=== PATIENT | female | born 1950 | race Caucasian/White ===

== ENCOUNTER 2017-11-21 06:48 | Emergency (ER) | payer SELFPAY ==
[2017-11-21 07:40] LABS: Urine Appearance Clear; Urine Blood Negative (Negative); Urine Color Straw; Urine Ketones Negative (Negative); Urine Protein Negative (Negative); Urine Specific Gravity 1.012 (1.010-1.030); Urine Urobilinogen Negative (Negative)
[2017-11-21] MEDS ORDERED: NS 0.9% 1000 ML* 1,000 ML IV ONE (07:41)
[2017-11-21 07:47] LABS: ABS Basophils 0 10^3/ul (0-0.2); ABS Eosinophils 0.2 10^3/ul (0-0.6); ABS Lymphocytes 1.5 10^3/ul (1.0-4.8); ABS Monocytes 0.5 10^3/ul (0-0.8); ABS Neutrophils 2.8 10^3/ul (1.5-7.7); ABS Nucleated RBC 0 10^3/ul; Eosinophil % 4.3 % (0-6); Hematocrit 38 % (35-47); Hemoglobin 13.1 g/dl (12.0-16.0); Lymphocyte % 29.7 % (25-47); Mean Corpuscular HGB Conc 35 g/dl (31-36); Mean Corpuscular Hemoglobin 30 pg (27-31); Mean Corpuscular Volume 88 fL (80-97); Mean Platelet Volume 8 um3 (7.4-10.4); Nucleated Red Blood Cells % 0; Platelet Count 165 10^3/ul (150-450); Red Blood Count 4.33 10^6/ul (4.0-5.4); Red Cell Distribution Width 13 % (10.5-15); White Blood Count 5.1 10^3/ul (3.5-10.8)
[2017-11-21 07:57] LABS: EGFR Non-African American 34.9 (>60)
--- NOTE | 2017-11-21 08:24 | RAD ---
INDICATION: LEFT flank pain. Recurrent urinary tract infections. Nausea and vomiting. COMPARISON: July 21, [address] TECHNIQUE: Multidetector CT images were obtained from the lung bases to the ischial tuberosities. Evaluation of the viscera is limited without IV contrast. Multiplanar reformation. REPORT: Focal bronchiectasis at the extreme caudal aspect of the lingula is chronic without concern. Negative for CT abnormality of the liver, partially distended gallbladder, pancreas, spleen. Negative for CT abnormality of the upper GI or small bowel. Post appendectomy. No CT abnormality of the colon. Negative for ascites, free air, hernias. Normal adrenal glands. Negative for urolithiasis or hydronephrosis. 1.2 x 2.4 cm sharply circumscribed uniform fat density lesion at the inferior pole of the LEFT kidney is consistent with a benign angiomyolipoma. No abnormality along the course of the nondilated ureters or at the urinary bladder. Post hysterectomy. Unremarkable adnexal regions. Negative for lymphadenopathy. Normal diameter abdominal aorta and iliac arteries. Largely decompressed inferior vena cava indicating lower volume state. Negative for suspicious osseous lesions. IMPRESSION: 1. Post appendectomy and hysterectomy. 2. Negative for urolithiasis or hydronephrosis. 3. 1.2 x 2.4 cm fat density lesion at the lower pole of the LEFT kidney consistent with a benign angiomyolipoma. 4. No acute abdominal pelvic pathologic process evident.
[2017-11-21 09:40] VITALS: BP 109/72
--- NOTE | 2017-11-22 16:10 | ED ---
Jeff Jones Angela, scribed for Johnny Scruggs MD on 11/21/17 at 0738 . GI/ HPI - HPI Summary HPI Summary: This pt is a 67 y/o female presenting to [facility] c/o abd pain radiating to left flank for the past couple of days. Pt notes she additionally has UTI symptoms. She states she has a hx of UTIs for approximately 2 years now. Pt states that on 11/02 she went to [facility] and was diagnosed with a UTI for which she was given antibiotics. She was also given a referral for Dr. Castro. Pt notes she finished her medications but a couple of days ago she began to feel recurrent UTI symptoms. She states this episode is different as she also has nausea, low back pain, abd pain and distension. Denies hx of kidney stones. PSHx: appendectomy. Pt reports taking Ciprofloxacin (from 2 years ago) yesterday and this morning. - History of Current Complaint Chief Complaint: EDUrogenitalProblems Time Seen by Provider: 11/21/17 07:26 Stated Complaint: POSSIBLE UTI/ITCH Hx Obtained From: Patient Onset/Duration: Started Days Ago, Still Present Timing: Lasting Days Current Severity: Moderate Pain Intensity: 7 Location of Pain: Diffuse Pain Radiates to: Flank - left Associated Signs and Symptoms: Positive: Back Pain - low, Nausea, UTI Symptoms. Negative: Vomiting - Allergy/Home Medications Allergies/Adverse Reactions: Allergies Allergy/AdvReac Type Severity Reaction Status Date / Time No Known Allergies Allergy Verified 11/21/17 07:40 PMH/Surg Hx/FS Hx/Imm Hx Endocrine/Hematology History: Denies: Hx Diabetes Cardiovascular History: Denies: Hx Hypertension History: Reports: Other Problems/Disorders - UTIs Denies: Hx Kidney Stones - Surgical History Surgery Procedure, Year, and Place: knee surgeries Infectious Disease History: No Infectious Disease History: Denies: Traveled Outside the [place] in Last 30 Days - Family History Known Family History: Positive: Respiratory Disease - Lung disease in grandmothers Negative: Diabetes Family History: Negative for CA. - Social History Alcohol Use: None Substance Use Type: Reports: None Smoking Status (MU): Unknown if Ever Smoked Review of Systems Negative: Fever, Chills Positive: Abdominal Pain, Nausea Genitourinary: Other - UTI symptoms Musculoskeletal: Other - low back pain All Other Systems Reviewed And Are Negative: Yes Physical Exam - Summary Physical Exam Summary: VITAL SIGNS: Reviewed. GENERAL: Patient is a well-developed and nourished female who is lying comfortable in the stretcher. Patient is not in any acute respiratory distress. HEAD AND FACE: Normocephalic and atraumatic. EYES: PERRLA, EOMI x 2, No injected conjunctiva. EARS: Hearing grossly intact. Ear canals and tympanic membranes are WNL. MOUTH: Oropharynx within normal limits. NECK: Supple, trachea is midline, no adenopathy, no JVD. CHEST: Symmetric, no tenderness at palpation LUNGS: Clear to auscultation bilaterally. No wheezing or crackles. CVS: RRR, S1 and S2 present, no murmurs or gallops appreciated. ABDOMEN: Soft. No signs of distention. Positive bowel sounds. No rebound no guarding, and no masses palpated. No abdominal bruit or pulsations. Left costovertebral angle tenderness. EXTREMITIES: FROM in all major joints, no edema, no cyanosis or clubbing. NEURO: Alert and oriented x 3. No acute neurological deficits. Speech is normal. SKIN: Dry and warm Triage Information Reviewed: Yes Vital Signs On Initial Exam: Initial Vitals Temp Pulse Resp BP Pulse Ox 97.0 F 72 16 118/79 99 11/21/17 06:58 11/21/17 06:58 11/21/17 06:58 11/21/17 06:58 11/21/17 06:58 Vital Signs Reviewed: Yes Diagnostics - Vital Signs Vital Signs Temp Pulse Resp BP Pulse Ox 11/21/17 07:28 71 95 11/21/17 07:26 131/77 11/21/17 06:58 97.0 F 72 16 118/79 99 - Laboratory Result Diagrams: 11/21/17 07:36 11/21/17 07:36 Lab Statement: Any lab studies that have been ordered have been reviewed, and results considered in the medical decision making process. - CT Abdomen/Pelvis CT CT Interpretation: Positive (See Comments) - IMPRESSION: 1. Post appendectomy and hysterectomy. 2. Negative for urolithiasis or hydronephrosis. 3. 1.2 x 2.4 cm fat density lesion at the lower pole of the LEFT kidney consistent with a benign angiomyolipoma. 4. No acute abdominal pelvic pathologic process evident. Dr. Scruggs has reviewed this radiology report. CT Interpretation Completed By: Radiologist ANNIE Course/Dx - Course Assessment/Plan: This pt is a 67 y/o female presenting to [facility] c/o abd pain radiating to left flank for the past couple of days. Pt notes she additionally has UTI symptoms. She states she has a hx of UTIs for approximately 2 years now. Pt states a few weeks ago pt was diagnosed with UTI and was given medications. She was also given a referral for Dr. Castro. Pt notes she finished her medications but a couple of days ago she felt UTI symptoms. She states this episode is different as she also has nausea, low back pain, abd pain and distension. Denies hx of kidney stones. Test result without any significant abnormalities except for creatinine of 1.5. Urinalysis is negative for UTI. Abdomen/Pelvis CT shows 1. Post appendectomy and hysterectomy. 2. Negative for urolithiasis or hydronephrosis. 3. 1.2 x 2.4 cm fat density lesion at the lower pole of the LEFT kidney consistent with a benign angiomyolipoma. 4. No acute abdominal pelvic pathologic process evident. The abdomen/pelvis CT was done to rule out kidney stone. Pt reported she took Ciprofloxacin and has taken 2-3 pills but continues to have the same symptoms. She also states the Ciprofloxacin was from 2 years ago so it mustve been . The pt complains of pelvic itching and I offered a pelvic exam, however the pt declined. She requested a SALES ENGAGEMENT MANAGER referral as she was not comfortable with me to the pelvic exam. She also reports that she has been having these symptoms for more than 6 months and denies any vaginal discharge. I encouraged her to do the pelvic exam however she declines. At this point since she reports the symptoms are similar to her previous 17 UTIs in the last 18 months, I will write a prescription for Ciprofloxacin and will give her a referral to SALES ENGAGEMENT MANAGER and urology. The pt feels comfortable with the plan; therefore she will be discharged to home. Pt is hemodynamically stable, alert and oriented x3. - Diagnoses Provider Diagnoses: Presumptive UTI, Left flank pain, Frequent UTI Discharge - Discharge Plan Condition: Stable Disposition: HOME Prescriptions: Ciprofloxacin TAB* [Cipro 500 MG TAB*] 500 mg PO BID #6 tab Patient Education Materials: Urinary Tract Infection in Women (ED), Flank Pain (ED) Referrals: Vandana MADRID,Tej Diamond [Primary Care Provider] - Wilbur Castro MD [Medical Doctor] - Tunde Garza MD [Medical Doctor] - Additional Instructions: Please follow up with Dr. Garza, SALES ENGAGEMENT MANAGER doctor, and Dr. Castro, urologist. RETURN TO THE ED FOR ANY WORSENING SYMPTOMS. The documentation as recorded by the Jeff goodrich Angela accurately reflects the service I personally performed and the decisions made by me, Johnny Scruggs MD.
== END 2017-11-21 09:39 | disposition home or self-care (01) ==
LOC: ED 06:48
DX: R10.9 Unspecified abdominal pain (principal); N28.9 Disorder of kidney and ureter, unspecified; Z87.440 Personal history of urinary (tract) infections; Z90.710 Acquired absence of both cervix and uterus; Z90.49 Acquired absence of other specified parts of digestive tract
CPT/HCPCS: 36415; 74176; 80053; 81003; 85025; 86140; 87086; 87491; 87591; 96360; 99282

== ENCOUNTER 2018-05-30 11:20 | Emergency (ER) | payer MEDICARE, OTHER ==
[~2018-05-30 11:20] MED LIST: Lidocaine PATCH 5%* 1 PATCH TRANSDERM SCH
[2018-05-30 12:51] LABS: Hematocrit 40 % (35-47); Hemoglobin 13.6 g/dl (12.0-16.0); Mean Corpuscular HGB Conc 34 g/dl (31-36); Mean Corpuscular Hemoglobin 30 pg (27-31); Mean Corpuscular Volume 88 fL (80-97); Mean Platelet Volume 7.3 um3 (7.4-10.4); Platelet Count 218 10^3/ul (150-450); Red Blood Count 4.51 10^6/ul (4.00-5.40); Red Cell Distribution Width 14 % (10.5-15); White Blood Count 7.9 10^3/ul (3.5-10.8)
[2018-05-30 12:56] LABS: INR 0.95 (0.77-1.02)
[2018-05-30 13:06] LABS: EGFR Non-African American 74.1 (>60)
[2018-05-30] MEDS ORDERED: Iohexol 300* (CONTRAST) 10 ML SDV IV ONE (13:16)
--- NOTE | 2018-05-30 14:17 | RAD ---
Indication: Fall on the right side of the bathtub with right chest injury. Contrast: Administered 80.1 ml of OMNIPAQUE 300 mg/ml CT of the chest, abdomen and pelvis was performed after oral and IV contrast administration. Coronal and sagittal reconstructed images were obtained. Inferior thyroid lobes are unremarkable. No mediastinal or hilar adenopathy is noted. The heart demonstrates no pericardial effusion. There is no mediastinal or hilar adenopathy. The heart demonstrates no pericardial effusion. The trachea and major bronchi appear patent. There is no evidence of pneumothorax. Nodules are identified. The liver is normal in size. No focal lesions or intrahepatic duct dilatation is noted. The gallbladder demonstrates no calcified gallstones. No pericholecystic fluid or wall thickening is noted. The spleen is normal in size. No adrenal masses are noted. The kidneys demonstrate symmetric nephrograms. There is a lipoma in the left kidney 2.0 cm. No retroperitoneal lymphadenopathy is noted. No dilated small bowel are noted. The aorta and inferior vena cava are unremarkable. Small bowel demonstrates no abnormal dilatation. CT of the pelvis demonstrates no retroperitoneal or pelvic lymphadenopathy. The uterus presumed to have been removed. Urinary bladder is unremarkable. No hernias are noted. No free fluid is identified. The visualized lumbar spine demonstrates no compression fracture. IMPRESSION: No free fluid is identified. No definite evidence of rib fracture is noted with special attention to the right lower ribs. No evidence of hepatic or pulmonary injury is noted with no evidence of pneumothorax. Incidentally noted is a lipoma in the left kidney. This is unchanged from November 21, 2017.
--- NOTE | 2018-05-30 14:57 | ED ---
Adult Trauma - HPI Summary HPI Summary: Pt presents w/ pain along Rt side of body since falling into cast iron tub 1 week ago. Reports she was cleaning the bathroom when she slipped in bleach and fell, catching herself with her Rt side along the tub. Has had pain since - worse w/ coughing, laughing, deep breathes, sneezing, etc. She is able to move her arms overhead however has been limited with some movements d/t pain - she has tried to push through some of these anyway, including yoga, cleaning, etc. Reports she has a high pain threshold. Has been taking aleve for pain but this is not longer helping. She does continue to try to do things as she feels better - may be setting herself back in re: to healing. Eating and drinking w/o pain or difficulty. - History of Current Complaint Chief Complaint: EDChestWallPain Stated Complaint: FALL/RT SIDE INJURY Time Seen by Provider: 05/30/18 11:36 Hx Obtained From: Patient Pain Intensity: 7 - Allergy/Home Medications Allergies/Adverse Reactions: Allergies Allergy/AdvReac Type Severity Reaction Status Date / Time No Known Allergies Allergy Verified 05/30/18 11:31 Home Medications: Home Medications Bupropion XL* [Wellbutrin XL *] 150 mg PO DAILY 05/30/18 [History Confirmed 08/06] Gabapentin 400 mg PO TID PRN 05/30/18 [History Confirmed 05/30/18] hydrOXYzine HCL TAB* [Atarax 25 MG TAB*] 25 mg PO BID 05/30/18 [History Confirmed 05/30/18] PMH/Surg Hx/FS Hx/Imm Hx Previously Healthy: Yes Endocrine/Hematology History: Denies: Hx Anticoagulant Therapy, Hx Blood Disorders, Hx Diabetes Cardiovascular History: Denies: Hx Hypertension History: Reports: Other Problems/Disorders - UTIs Denies: Hx Kidney Stones, Hx Renal Disease - Surgical History Surgery Procedure, Year, and Place: knee surgeries. hysterectomy. breast bx Infectious Disease History: No Infectious Disease History: Denies: Traveled Outside the [place] in Last 30 Days - Family History Known Family History: Positive: Respiratory Disease - Lung disease in grandmothers Negative: Diabetes Family History: Negative for CA. - Social History Occupation: Retired - helps w/ [employer] Alcohol Use: Rare Hx Substance Use: No Substance Use Type: Reports: None Hx Tobacco Use: No Smoking Status (MU): Never Smoked Tobacco Review of Systems Constitutional: Negative Eyes: Negative Positive: Chest Pain - chest wall pain - Rt midaxillary. Negative: Palpitations Respiratory: Other - pain w/ deep breath Negative: Shortness Of Breath, Cough Positive: Abdominal Pain - Rt side. Negative: Vomiting, Diarrhea, Nausea Negative: hematuria Positive: Arthralgia, Myalgia, Decreased ROM Skin: Negative Neurological: Negative Positive: Anxious All Other Systems Reviewed And Are Negative: Yes Physical Exam Triage Information Reviewed: Yes Vital Signs On Initial Exam: Initial Vitals Temp Pulse Resp BP Pulse Ox 99 F 84 17 134/98 96 05/30/18 11:27 05/30/18 11:27 05/30/18 11:27 05/30/18 11:27 05/30/18 11:27 Vital Signs Reviewed: Yes Appearance: Positive: Well-Appearing, Pain Distress, Thin Skin: Positive: Warm, Skin Color Reflects Adequate Perfusion, Dry - no erythema , no ecchymosis over affected area Head/Face: Positive: Normal Head/Face Inspection Eyes: Positive: Normal, EOMI, ZOIE - no photophobia, Conjunctiva Clear ENT: Positive: Normal ENT inspection, Hearing grossly normal, Pharynx normal Dental: Negative: Dental Fracture @ Neck: Positive: Supple, Nontender Respiratory/Lung Sounds: Positive: Clear to Auscultation, Breath Sounds Present. Negative: Rales, Rhonchi, Stridor, Tracheal Deviation, Wheezes Cardiovascular: Positive: Normal, RRR, Pulses are Symmetrical in both Upper and Lower Extremities Abdomen Description: Positive: Soft, Other: - RUQ and Rt side TTP - no rebounding Bowel Sounds: Positive: Present Musculoskeletal: Positive: Strength/ROM Intact - cervical spine, UE's w/o pain or difficulty, Pain @ - RT midaxillary ribs TTP Neurological: Positive: Normal, Sensory/Motor Intact, Alert, Oriented to Person Place, Time, CN Intact II-III Psychiatric: Positive: Anxious Diagnostics - Vital Signs Vital Signs Temp Pulse Resp BP Pulse Ox 05/30/18 11:27 99 F 84 17 134/98 96 - Laboratory Lab Results: Lab Results 05/30/18 05/30/18 05/30/18 Range/Units 12:39 12:39 12:39 WBC 7.9 (3.5-10.8) 10^3/ul RBC 4.51 (4.00-5.40) 10^6/ul Hgb 13.6 (12.0-16.0) g/dl Hct 40 (35-47) % MCV 88 (80-97) fL MCH 30 (27-31) pg MCHC 34 (31-36) g/dl RDW 14 (10.5-15) % Plt Count 218 (150-450) 10^3/ul MPV 7.3 L (7.4-10.4) um3 INR (Anticoag Therapy) 0.95 (0.77-1.02) APTT 32.6 (26.0-36.3) seconds Sodium 140 (135-145) mmol/L Potassium 3.8 (3.5-5.0) mmol/L Chloride 104 (101-111) mmol/L Carbon Dioxide 29 (22-32) mmol/L Anion Gap 7 (2-11) mmol/L BUN 10 (6-24) mg/dL Creatinine 0.78 (0.51-0.95) mg/dL Est GFR ( Amer) 89.7 (>60) Est GFR (Non-Af Amer) 74.1 (>60) BUN/Creatinine Ratio 12.8 (8-20) Glucose 92 (70-100) mg/dL Calcium 9.3 (8.6-10.3) mg/dL Result Diagrams: 05/30/18 12:39 05/30/18 12:39 Lab Statement: Any lab studies that have been ordered have been reviewed, and results considered in the medical decision making process. Adult Trauma Course/Dx - Course Course Of Treatment: CT w/o acute findings of the chest, ab, pelvis. Suspect contusion/intercostal strain. Education about penumonia prevention and advised close f/u. Pt will return to ED if danger s/sx present. Appears well otherwise and vitals stable - Diagnoses Provider Diagnoses: Intercostal muscle strain Discharge - Sign-Out/Discharge Documenting (check all that apply): Patient Departure - Discharge Plan Condition: Stable Disposition: HOME Prescriptions: Lidocaine PATCH 5%* [Lidoderm 5% Patch*] 1 patch TRANSDERM DAILY PRN #30 patch PRN Reason: Pain Patient Education Materials: How to Use an Incentive Spirometer (ED), Rib Contusion (ED) Referrals: [facility] [Outside] Additional Instructions: Rest, heat alternating with ice, ibuprofen with food alternating with acetaminophen as needed for pain You may also use lidoderm pain patches as directed - if you have difficulty getting this covered by your insurance, you may use Salonpas patches over the counter Follow-up with PCP in 1-2 weeks to recheck symptoms - they may also aid in helping you to get lidoderm pain patch covered by insurance if it helps. Call today to schedule an appointment (see contact information for [facility]) Use incentive spirometer as directed *If you develop fever, chills, cough, difficulty breathing, return to the ED - Billing Disposition and Condition Condition: STABLE Disposition: Home
[2018-05-30 15:30] VITALS: BP 115/75
[2018-05-31] MEDS ORDERED: Lidocaine Patch REMOVE* 1 NOTE MISC PATCH OFF SCH (03:30)
== END 2018-05-30 15:29 | disposition home or self-care (01) ==
LOC: ED 11:20
DX: S20.211A Contusion of right front wall of thorax, initial encounter (principal); W22.8XXA Striking against or struck by other objects, initial encounter; Y92.9 Unspecified place or not applicable
CPT/HCPCS: 36415; 71260; 74177; 80048; 85027; 85610; 85730; 99282; A9270-GY; Q9967

== ENCOUNTER 2019-02-28 10:57 | Emergency (ER) | payer SELFPAY ==
[2019-02-28] MEDS ORDERED: NS 0.9% 1000 ML** 1,000 ML IV ONE (11:21)
--- NOTE | 2019-02-28 11:23 | ED ---
GI/ HPI - HPI Summary HPI Summary: Patient is a 68 y/o F presenting to ED with complaints of left flank pain, dysuria, bladder "pressure", and minimal urine production. Sx onset last week. Patient had some leftover Cipro, 500 mg, from "a while back". Patient states that she has taken around 8 tablets since Sx onset. Patient additionally notes that she has been taking AZO. She thought she had a yeast infection as her genital area was pruritic as well. She denies vaginal discharge. Patient states that she went to [facility] and who reported that she weighed 130 lbs. She notes that she typically weighs around 115-120 lbs and is concerned about this recent weight gain. Patient claims that she drinks around 50 oz water daily. TIMBER SETTER at [facility] was concerned the patient has pyelonephritis and advised the patient to come to ED for further workup. On triage, pain is rated 3/10. Nothing is noted to aggravate/alleviate Sx. Home medications and allergies are reviewed. - History of Current Complaint Stated Complaint: ACUTE PYELONEPHRITIS PER WELL NOW Hx Obtained From: Patient Onset/Duration: Started Days Ago - six days, Still Present Timing: Constant, Lasting Days - six days Severity: Mild Current Severity: Mild Pain Intensity: 3 Location of Pain: Flank - left Pain Characteristics: Pressure - bladder Associated Signs and Symptoms: Positive: Dysuria, Flank Pain - left, Other: - bladder pressure, minimal urine production, recent weight gain reported Additional Signs & Symptoms: Positive: Other: - genital pruritis. Negative: Vaginal Discharge Aggravating Factor(s): Nothing Alleviating Factor(s): Nothing - Allergy/Home Medications Allergies/Adverse Reactions: Allergies Allergy/AdvReac Type Severity Reaction Status Date / Time No Known Allergies Allergy Verified 02/28/19 11:03 PMH/Surg Hx/FS Hx/Imm Hx Endocrine/Hematology History: Denies: Hx Anticoagulant Therapy, Hx Blood Disorders, Hx Diabetes Cardiovascular History: Denies: Hx Hypertension History: Reports: Other Problems/Disorders - UTIs Denies: Hx Kidney Stones, Hx Renal Disease - Surgical History Surgery Procedure, Year, and Place: knee surgeries. hysterectomy. breast bx Infectious Disease History: No Infectious Disease History: Denies: Traveled Outside the [place] in Last 30 Days - Family History Known Family History: Positive: Respiratory Disease - Lung disease in grandmothers Negative: Diabetes Family History: Negative for CA. - Social History Alcohol Use: Rare Hx Substance Use: No Substance Use Type: Reports: None Hx Tobacco Use: No Smoking Status (MU): Never Smoked Tobacco Review of Systems Constitutional: Other - positive - recent weight gain Genitourinary: Other - positive - minimal urine production, bladder "pressure", genital area pruritic Positive: dysuria, flank pain - left . Negative: discharge - vaginal All Other Systems Reviewed And Are Negative: Yes Physical Exam - Summary Physical Exam Summary: VITAL SIGNS: Reviewed. GENERAL: Patient is a well-developed and nourished female who is lying comfortable in the stretcher. Patient is not in any acute respiratory distress. Left CVA tenderness is noted. HEAD AND FACE: Normocephalic and atraumatic. EYES: PERRLA, EOMI x 2, No injected conjunctiva. EARS: Hearing grossly intact. Ear canals and tympanic membranes are WNL. MOUTH: Oropharynx within normal limits. NECK: Supple, trachea is midline, no adenopathy, no JVD. CHEST: Symmetric, no tenderness at palpation LUNGS: Clear to auscultation bilaterally. No wheezing or crackles. CVS: RRR, S1 and S2 present, no murmurs or gallops appreciated. ABDOMEN: Soft, non-tender. No signs of distention. Positive bowel sounds. No rebound no guarding, and no masses palpated. No abdominal bruit or pulsations. EXTREMITIES: FROM in all major joints, no edema, no cyanosis or clubbing. NEURO: Alert and oriented x 3. No acute neurological deficits. Speech is normal. SKIN: Dry and warm. Triage Information Reviewed: Yes Vital Signs On Initial Exam: Initial Vitals Temp Pulse Resp BP Pulse Ox 97.6 F 76 14 119/79 97 02/28/19 11:00 02/28/19 11:00 02/28/19 11:00 02/28/19 11:00 02/28/19 11:00 Vital Signs Reviewed: Yes Diagnostics - Vital Signs Vital Signs Temp Pulse Resp BP Pulse Ox 02/28/19 11:00 97.6 F 76 14 119/79 97 - Laboratory Result Diagrams: 02/28/19 11:41 02/28/19 11:41 Lab Statement: Any lab studies that have been ordered have been reviewed, and results considered in the medical decision making process. - CT ABD/PEL CT CT Interpretation Completed By: Radiologist Summary of CT Findings: IMPRESSION: No evidence of obstructive uropathy is noted. Patient is status post. hysterectomy. No abnormal masses or fluid collections are noted. Lipoma in the left kidney unchanged from previous exam. THIS REPORT WAS REVIEWED BY DR. STARKS. Re-Evaluation - Re-Evaluation First Eval Re-Evaluation Time: 13:01 Comment: Results of labs and tests were discussed with the patient. She will be discharged to home and follow up with PCP in three days, she was given prescription for antibiotics. Strict return precautions given. Patient is agreeable with discharge. GIGU Course/Dx - Course Assessment/Plan: Patient is a 68 y/o F presenting to ED with complaints of left flank pain, dysuria, bladder "pressure", and minimal urine production. Sx onset last week. Patient had some leftover Cipro, 500 mg, from "a while back". Patient states that she has taken around 8 tablets since Sx onset. Patient additionally notes that she has been taking AZO. She thought she had a yeast infection as her genital area was pruritic as well. She denies vaginal discharge. Patient states that she went to [facility] and who reported that she weighed 130 lbs. She notes that she typically weighs around 115-120 lbs and is concerned about this recent weight gain. Patient claims that she drinks around 50 oz water daily. TIMBER SETTER at [facility] was concerned the patient has pyelonephritis and advised the patient to come to ED for further workup. Blood work without any significant abnormality except for protein was 6.1. Abdominopelvic CT impression: No evidence of obstructive uropathy is noted. Patient is status post hysterectomy. No abnormal masses or fluid collections are noted. Lipoma in the left kidney unchanged from previous exam. Patient was given 1 dose of Rocephin. Because of the patients symptoms, which she reports is similar to a UTI, and the fact that the symptoms are not improving even though she is taking ciprofloxacin, we place the patient on Bactrim and I will discharge the patient home with follow-up with PCP. - Diagnoses Provider Diagnoses: UTI (urinary tract infection) Discharge - Sign-Out/Discharge Documenting (check all that apply): Patient Departure - discharge Patient Received Moderate/Deep Sedation with Procedure: No - Discharge Plan Condition: Stable Disposition: HOME Prescriptions: Sulfamethox/Trimethoprim DS* [Bactrim DS 800/160 TAB*] 1 tab PO BID #14 tab Patient Education Materials: Urinary Tract Infection in Women (ED) Referrals: [facility] [Outside] - 3 Days Additional Instructions: PLEASE RETURN TO ED FOR ANY CHANGING OR WORSENING SYMPTOMS. FOLLOW UP WITH YOUR PRIMARY CARE PHYSICIAN WITHIN THREE DAYS. - Billing Disposition and Condition Condition: STABLE Disposition: Home - Attestation Statements Document Initiated by Scribe: Yes Documenting Scribe: JAMES DAMIAN Provider For Whom Scribe is Documenting (Include Credential): ELIZABETH STARKS MD Scribe Attestation: JAMES Jones, scribed for ELIZABETH STARKS MD on 02/28/19 at 2141. Scribe Documentation Reviewed: Yes Provider Attestation: The documentation as recorded by the JAMES goodrich accurately reflects the service I personally performed and the decisions made by ELIZABETH whiting MD Status of Scribe Document: Viewed
[2019-02-28 11:51] LABS: ABS Basophils 0.1 10^3/ul (0-0.2); ABS Eosinophils 0.1 10^3/ul (0-0.6); ABS Lymphocytes 1.1 10^3/ul (1.0-4.8); ABS Monocytes 0.4 10^3/ul (0-0.8); ABS Neutrophils 3.4 10^3/ul (1.5-7.7); Eosinophil % 2.9 %; Hematocrit 37 % (35-47); Hemoglobin 12.3 g/dL (12.0-16.0); Lymphocyte % 20.8 %; Mean Corpuscular HGB Conc 34 g/dL (31-36); Mean Corpuscular Hemoglobin 29 pg (27-31); Mean Corpuscular Volume 87 fL (80-97); Mean Platelet Volume 7.2 fL (7.4-10.4); Platelet Count 204 10^3/uL (150-450); Red Blood Count 4.21 10^6 /uL (3.70-4.87); Red Cell Distribution Width 14 % (10-15); White Blood Count 5.1 10^3/uL (3.5-10.8)
[2019-02-28 12:05] LABS: ALT 7 U/L (7-52); AST 13 U/L (13-39); Albumin 3.9 g/dL (3.2-5.2); Albumin/Globulin Ratio 1.8 (1-3); Alkaline Phosphatase 62 U/L (34-104); Anion Gap 5 mmol/L (2-11); BUN/Creatinine Ratio 16.5 (8-20); Blood Urea Nitrogen 15 mg/dL (6-24); C Reactive Protein 1.17 mg/L (<8.01); CO2 Carbon Dioxide 29 mmol/L (22-32); Chloride 106 mmol/L (101-111); EGFR African American 74.8 (>60); EGFR Non-African American 61.9 (>60); Globulin 2.2 g/dL (2-4); Glucose 100 mg/dL (70-100); Potassium 3.5 mmol/L (3.5-5.0); Sodium 140 mmol/L (135-145); Total Protein 6.1 g/dL (6.4-8.9)
[2019-02-28 12:22] LABS: Urine Appearance Cloudy; Urine Bacteria 1+ (Absent); Urine Bilirubin Negative (Negative); Urine Blood 1+ (Negative); Urine Color Yellow; Urine Glucose Negative (Negative); Urine Ketones Negative (Negative); Urine Nitrite Negative (Negative); Urine Protein Negative (Negative); Urine Red Blood Cell 2+(6-10/hpf) (Absent); Urine Specific Gravity 1.014 (1.010-1.030); Urine Squamous Epithelial Cell Present (Absent); Urine Urobilinogen Negative (Negative); Urine White Blood Cell 3+(>20/hpf) (Absent)
[2019-02-28] MEDS ORDERED: cefTRIAXone(*) 1 GM in NS 0.9% 50 ML* 50 ML IVPB ONE (12:48)
[2019-02-28 13:59] VITALS: BP 127/75
--- NOTE | 2019-03-02 16:44 | PN ---
Progress Note - Progress Note Date of Service: 02/28/19 Note: Final urine culture growing e. coli susceptible to bactrim. No change in treatment needed.
--- NOTE | 2019-03-03 09:22 | ED ---
Progress - Progress Note Progress Note: Sens reveal Bactrim effective - no change in tx Re-Evaluation - Re-Evaluation First Eval Re-Evaluation Time: 13:01 Comment: Results of labs and tests were discussed with the patient. She will be discharged to home and follow up with PCP in three days, she was given prescription for antibiotics. Strict return precautions given. Patient is agreeable with discharge. Course/Dx - Diagnoses Provider Diagnoses: UTI (urinary tract infection) Discharge - Sign-Out/Discharge Documenting (check all that apply): Post-Discharge Follow Up Patient Received Moderate/Deep Sedation with Procedure: No - Discharge Plan Condition: Stable Disposition: HOME Prescriptions: Sulfamethox/Trimethoprim DS* [Bactrim DS 800/160 TAB*] 1 tab PO BID #14 tab Patient Education Materials: Urinary Tract Infection in Women (ED) Referrals: [facility] [Outside] - 3 Days Additional Instructions: PLEASE RETURN TO ED FOR ANY CHANGING OR WORSENING SYMPTOMS. FOLLOW UP WITH YOUR PRIMARY CARE PHYSICIAN WITHIN THREE DAYS. - Billing Disposition and Condition Condition: STABLE Disposition: Home
== END 2019-02-28 14:05 | disposition home or self-care (01) ==
LOC: ED 10:57
DX: N39.0 Urinary tract infection, site not specified (principal); B96.20 Unspecified Escherichia coli [E. coli] as the cause of diseases classified elsewhere; Z90.710 Acquired absence of both cervix and uterus
CPT/HCPCS: 36415; 74176; 80053; 81003; 81015; 83605; 83690; 85025; 86140; 87077; 87086; 87186; 96361; 96365; 99283; J0696